=== PATIENT | female | born 1945 | race Caucasian/White ===

== ENCOUNTER 2021-11-21 05:20 | Day surgery (SDC) | payer MEDICARE ==
[2021-11-11 12:28] LABS: BASOPHILS % (AUTO) 0.5 % (0-1); EOSINOPHILS # (AUTO) 0.2 X10'3 (0-0.9); LYMPHOCYTES # (AUTO) 1.8 X10'3 (1.1-4.8); LYMPHOCYTES % (AUTO) 26.7 % (21-51); MEAN CORPUSCULAR HEMOGLOBIN 23.9 PG (27.0-31.0); MEAN CORPUSCULAR HGB CONC 31.8 g/dL (33.0-36.5); MEAN CORPUSCULAR VOLUME 75.3 FL (78-98); MEAN PLATELET VOLUME 7.9 FL (7.4-10.4); MONOCYTES # (AUTO) 0.5 X10'3 (0-0.9); MONOCYTES % (AUTO) 7.4 % (2-12); NEUTROPHILS # (AUTO) 4.1 X10'3 (1.8-7.7); NEUTROPHILS % (AUTO) 62.4 % (42-75); PRE OP HEMATOCRIT 37.5 % (35.0-45.0); PRE OP HEMOGLOBIN 11.9 g/dL (12.0-16.0); PRE OP PLATELET COUNT 271 X10'3 (140-440); RED BLOOD COUNT 4.98 X10'6 (4.20-5.60); RED CELL DISTRIBUTION WIDTH 16.9 % (11.5-14.5)
[2021-11-11 12:55] LABS: ALBUMIN 3.5 G/DL (3.4-5.0); ALBUMIN/GLOBULIN RATIO 1.2 (1.1-1.5); ALKALINE PHOSPHATASE 48 IU/L (46-116); BLOOD UREA NITROGEN 21 MG/DL (7-18); CHLORIDE 107 MMOL/L (99-107); PRE OP ALT 23 U/L (30-65); PRE OP ANION GAP 12 (8-16); PRE OP AST 20 U/L (10-37); PRE OP BILIRUB, TOTAL 0.5 MG/DL (0.0-1.0); PRE OP GLUCOSE 166 MG/DL (70-104); PRE OP POTASSIUM 3.9 MMOL/L (3.4-5.1); PRE OP SODIUM 142 MMOL/L (135-145); TOTAL CARBON DIOXIDE 23.4 MMOL/L (24-32); TOTAL PROTEIN 6.5 G/DL (6.4-8.2)
[2021-11-11 13:27] LABS: BUN/CREATININE RATIO 24.4 (6.6-38.0); CREATININE 0.86 MG/DL (0.40-0.90); eGFR 65 ML/MIN
[2021-11-21] VITALS (14 sets, daily range): BP systolic 132–150; BP diastolic 66–76
[~2021-11-21] VITALS: Ht 154.9 cm; Wt 73.4 kg
[~2021-11-21 05:20] MED LIST: AMLO5TAB16 PO; ASPI-12 PO; FENO145T25 PO; IRBE300T18 PO; LANS15TA5 PO; METF-1203 PO; METO50TA16 PO; ringers solution, lacted 1,000 ML IV SCH
[2021-11-21] MEDS ORDERED: famotidine 20mg tablet PO ONE (05:30)
[2021-11-21] MEDS ORDERED: cefazolin/dext.iso 2gm/50ml IV ONE (05:30)
[2021-11-21] MEDS ORDERED: DOCUMENT DATE & TIME OF BETA-BLOCKER PO ONE (05:30)
[2021-11-21] MEDS ORDERED: ceFAZolin 1,000 MG in NS 50ML IVPB IV ONE (06:00)
[2021-11-21] MEDS ORDERED: bacitracin 15gm ointment TP ONE (06:35)
[2021-11-21 06:50] LABS: CLARITY,URINE CLEAR (Clear); COLOR,URINE YELLOW (Yellow); GLUCOSE, URINE NEGATIVE (Neg); KETONES,URINE NEGATIVE (Neg); LEUKOCYTE ESTERASE ,URINE NEGATIVE (Neg); NITRITES, URINE NEGATIVE (Neg); OCCULT BLOOD,URINE NEGATIVE (Neg); PH,URINE 5.5 (4.8-8.0); PROTEIN,URINE NEGATIVE (Neg); UROBILINOGEN,URINE 0.2 E.U/dL (0.2-1.0)
[2021-11-21 06:55] LABS: UA COLLECTION TYPE CLN CATCH MIDSTREAM
[2021-11-21] MEDS ORDERED: sevoflurane 250ml liquid IH ONE (07:02)
[2021-11-21] MEDS ORDERED: FENTANYL CITRATE/PF 50 MCG/1 ML VIAL ONE ×2 (07:11→08:14)
[2021-11-21] MEDS ORDERED: ROPIVAcaine 0.5% (5mg/ml) 30ml vial IJ ONE (07:44)
[2021-11-21] MEDS ORDERED: ePHEDrine 50MG/ML INJ. ONE (08:01)
[2021-11-21] MEDS ORDERED: glycopyrrolate 0.2mg/ml inj ONE (08:01)
[2021-11-21] MEDS ORDERED: propofol inj 20 ML IV ONE (08:01)
[2021-11-21] MEDS ORDERED: LIDOcaine 2% (20mg/ml) 5ml vial ONE (08:01)
[2021-11-21] MEDS ORDERED: ondansetron/PF 4mg/2ml inj ONE (08:01)
[2021-11-21] MEDS ORDERED: rocuronium 10mg/ml inj IV ONE (08:01)
[2021-11-21] MEDS ORDERED: neostigmine methylsulfate 1 MG/ML 10ml vial ONE (08:01)
[2021-11-21] MEDS ORDERED: acetaminophen 1,000mg/100ml IV 100 ML IV ONE (08:01)
--- NOTE | 2021-11-21 08:20 | NUR ---
Received from OR via [facility], accompanied by Anesthesiologist OSMANI and report given by Anesthesiolgist. PT DROWSY, OXYGENATING WELL ON 10 LPM O2 VIA MASK, NO RESP DISTRESS NOTED. NO C/O NAUSEA AT THIS TIME, VERY MINIMAL PAIN REPORTED IN RLE. BOOT BRACE TO RLE. RIGHT TOES P/W/D. VSS.
[2021-11-21] MEDS ORDERED: ondansetron/PF 4mg/2ml inj IV ONE (09:00)
[2021-11-21] MEDS ORDERED: fentaNYL/PF 50MCG/1 ML 2ML syringe IV PRN (09:30)
[2021-11-21] MEDS ORDERED: ondansetron/PF 4mg/2ml inj IV PRN (09:30)
[2021-11-21] MEDS ORDERED: ringers solution, lacted 1,000 ML IV SCH (09:30)
--- NOTE | 2021-11-21 11:40 | NUR ---
POST OP NAUSEA WAS RESOLVED WITH ZOFRAN. PT WAS UNABLE TO VOID DURING PACU STAY. C/O PRESSURE AND PAIN, NEEDING TO VOID. ULTRASOUND SAW >[address] YEE AND RECD ORDERS FOR STRAIGHT CATH. 600 ML OUT, PT STATES RELIEF. DC INSTRUCTIONS EXPLAINED TO PT, SHE VERBALIZED UNDERSTANDING. PIV DCD CATH INTACT. TAKEN TO CAR VIA WC, DISCHARGED IN STABLE CONDITION.
== END 2021-11-21 11:40 | disposition home or self-care (01) ==
LOC: PAS 05:20
PROVIDERS: ATTEND Podiatrist Foot & Ankle Surgery
DX: M20.21 Hallux rigidus, right foot (principal); M20.11 Hallux valgus (acquired), right foot; M19.071 Primary osteoarthritis, right ankle and foot; M19.072 Primary osteoarthritis, left ankle and foot; E11.9 Type 2 diabetes mellitus without complications; K21.9 Gastro-esophageal reflux disease without esophagitis; I10 Essential (primary) hypertension; E66.9 Obesity, unspecified; Z68.30 Body mass index [BMI] 30.0-30.9, adult; Z90.49 Acquired absence of other specified parts of digestive tract; Z96.653 Presence of artificial knee joint, bilateral; Z88.5 Allergy status to narcotic agent; Z88.1 Allergy status to other antibiotic agents; Z20.822 Contact with and (suspected) exposure to COVID-19; Z79.82 Long term (current) use of aspirin; Z79.899 Other long term (current) drug therapy; Z98.890 Other specified postprocedural states
CPT/HCPCS: 28750; 36415; 73620; 76000; 80053; 81003; 82948; 85025; 93005; A6223; C1713; J0131; J0690; J2405; J2704; J2710; J2795; J3010; J3490; J7030; J7120; U0003; U0005; Z7506; Z7508; Z7512; A4215; A4618; A6449; A7000